=== PATIENT | female | born 1975 | race Caucasian/White ===

== ENCOUNTER 2019-10-23 10:01 | Outpatient (CLI) | payer MEDICAID, SELFPAY ==
--- NOTE | 2019-10-23 10:05 | US_ITS ---
WS: [id number] ULTRASOUND ABDOMEN LIMITED CLINICAL INFORMATION: NAUSEA AND VOMITING COMPARISON: None. FINDINGS: Liver Size: Normal. Craniocaudal length: 15.7 cm. Echogenicity: Normal. Surface nodularity: None. Mass (size and location): None. Bile ducts Intrahepatic ducts: Normal. Common bile duct diameter: 0.5 cm. Gallbladder Normal. Gallstones: None. Gallbladder sludge: None. Gallbladder wall thickening: None. Pericholecystic fluid: None. Sonographic Webb sign: Absent. Pancreas Normal as visualized. Right kidney: Normal. Hydronephrosis: None. Size: 11.0 cm x 5.0 cm x 4.1 cm. Abdominal aorta and IVC Visualized portions are normal. Ascites: None. US/US gall bladder [id number] IMPRESSION: Normal abdominal ultrasound
--- NOTE | 2019-10-23 10:42 | MR_ITS ---
WS: [id number] MRI HEAD WITH CONTRAST TECHNIQUE: Sagittal T1, T2 axial, T2 axial FLAIR, axial susceptibility weighted imaging, axial diffus ion weighted images, and coronal T2 images were obtained. Pre and post-T1 axial and post T1 coronal i mages. ADC and FSPGR images. CLINICAL INFORMATION: MEMORY IMPAIRMENT COMPARISON: September 09, 2017 FINDINGS: No evidence of restricted diffusion to suggest acute ischemia. Ventricular system and basal cisterns are patent. No suspicious intracranial signal abnormalities. Normal leon-white differentiation. No ev idence of mass or mass effect. 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 Normal posterior fossa . Normal vascular flow voids at the skull base. No extra-axial fluid collections. No evidence of mass or mass effect. Temporal lobes and hippocampal formations are normal in appearance. No significant hippocampal atroph y. Normal optic chiasm and pituitary infundibulum. Normal sella. Meckel's cave is normal in appearanc e. Proximal 7th and 8th cranial nerves appear normal. No abnormal intracranial enhancement. Dural maren ous sinuses are normal. MR/MR head wo/w con [id number] IMPRESSION: 1. No evidence of restricted diffusion to suggest acute ischemia. 2. No suspicious intracranial signal abnormalities. 3. No abnormal gadolinium enhancement. 4. Temporal lobes and hippocampal formations are normal in appearance. No sign ificant hippocampal atrophy. 5. No significant interval changes from 2018..
== END 2019-10-23 10:02 | disposition home or self-care (01) ==
PROVIDERS: Family Provider General Practice; Visit Provider Family Medicine
DX: R11.2 Nausea with vomiting, unspecified (principal); G31.84 Mild cognitive impairment of uncertain or unknown etiology
CPT/HCPCS: 70553; 76705; A9579